=== PATIENT | male | born 1975 | race Caucasian/White ===

== ENCOUNTER 2016-09-24 11:09 | Emergency (ER) | payer OTHER ==
--- NOTE | 2016-09-24 11:30 | ERNOTE ---
Allergy Symptoms - ER Date of Service: 09/24/16 Presenting Symptoms: dizziness, other - facial redness, feeling flushed, blurry vision, Source: patient Exam Limitations: no limitations Immunizations: IMMUNIZATION HX Immunizations Up to Date Yes History of Influenza Vaccine No Hx Pneumococcal Vaccination More Information Required Allergies/Adverse Reactions: Allergies gabapentin Allergy (Verified 09/24/16 11:19) ibuprofen Allergy (Verified 09/24/16 11:19) Home Medications: HOME MEDICATIONS ALPRAZolam [Xanax] 2 mg PO TID 05/14/15 [Last Taken Unknown] Cetirizine HCl [Zyrtec] 1 tab PO DAILY PRN #30 tab 09/24/16 [Last Taken Unknown] oxyCODONE HCL [Oxycodone] 10 mg PO TID PRN 09/24/16 [Last Taken Unknown] - History of Present Illness Narrative: Pt presents with c/o "Allergic reaction" to steroid epidural injection he received yesterday. Pt claims throughout the night, he has been feeling flushed , dizzy, and very warm. Also has been feeling very anxious. Pt claims he spoke to the anesthesiologist who injected him, and he was told to come into the ER to get treated with "antihistamine". Timing: Present: constant Treatment NEUROSURGICAL PHYSICIAN ASSISTANT:: none Location skin rash/itching: Present: diffuse, "redness" Location swelling: Present: none Severity shortness of breath: Present: mild Identified cause?: Yes - possibly steroid epidural injection Similar symptoms previously: No Prior Treament: Reports: treated by physician - received steroid epidural injection yesterday. Review of Systems - Review of Systems Constitutional: Present: no symptoms reported EYE: Present: no symptoms reported ENT: Present: no symptoms reported Respiratory: Present: shortness of breath - mild Cardiology: Present: no symptoms reported Gastrointestinal/Abdominal: Present: no symptoms reported Genitourinary: Present: no symptoms reported Musculoskeletal: Present: no symptoms reported Skin: Present: See HPI Neurological: Present: no symptoms reported Endocrine: Present: no symptoms reported Hematologic/Lymphatic: Present: no symptoms reported Psych: Present: no symptoms reported All Other Systems: All systems neg except as marked - Patient's Past Medical History Patient History - Medical: Chronic Pain Patient History - Cardiac/Respiratory: No pertinent hx Patient History - Cancer: No Hx of Cancer Patient History - Surgical Procedures: Other Patient History - Other: None - Family History Father Family History - Cardiac/Respiratory: Myocardial Infarction - Social History Living Situations: home Abuse History: No History of abuse Psych History: Hx of Anxiety Smoking Status: Never smoker Have you smoked in the past 12 months: No Alcohol Use: none Drug Use: none - Immunizations Immunizations Up to Date: Yes Hx Pneumococcal Vaccination: More Information Required to Determine History of Influenza Vaccine: No Physical Exam - Physical Exam General Appearance: Present: wd/wn, alert, no apparent distress Eye Exam: Normal inspection: bilateral, PERRL: bilateral Ears, Nose, Throat: Present: normal ENT inspection Neck: Present: normal inspection, nontender Respiratory: Present: no respiratory distress, normal breath sounds, no accessory muscle use, chest nontender, lungs clear Neurological Exam: Present: alert, oriented, other - anxious Skin Exam: Present: warm/dry, other - increased redness, especially face ED Progress - Vital Signs Patient's Vital Signs:: I have reviewed the patient's vital signs. Vital Signs: Vital Signs 09/24/16 11:13 Temperature 37.5 C Pulse Rate 82 Respiratory 16 Rate Blood Pressure 200/132 O2 Sat by Pulse 95 Oximetry - Progress/Reassessment Chief Complaint: Allergic Reaction Progress:: Improved Departure Clinical Impression: Adverse drug reaction - Departure Disposition: Home self-care Condition: Good Instructions: Drug Allergy, [id number] Prescriptions: Cetirizine HCl [Zyrtec] 1 tab PO DAILY PRN #30 tab PRN Reason: Rash
[2016-09-24] MEDS ORDERED: diphenhydrAMINE HCL 50 MG/ML VIAL IM ONE (11:42)
[2016-09-24] MEDS ORDERED: diphenhydrAMINE HCL 50 MG/ML VIAL ONE (11:47)
--- OUTSIDE RECORDS SUMMARY | 2016-09-24 11:49 | XMS REPORT | Continuity of Care Document ---
:1975 Author Organization [facility] ([facility]) [place] [address] Phone [phone] Care Team Providers Name Role Phone Provider, No-Primary Care Primary Care Provider Unavailable Source Comments This disclosure is being made pursuant to the Care Everywhere program, applicable federal and state laws, and may not contain all informaitonavailable regarding this patient.[facility] ([facility]) Active Allergies and Adverse Reactions No Active Allergies Current Medications Not on file Active Problems Problem Noted Date Lumbago 09/09/2006 Closed fracture of shaft of tibia 02/04/2003 Open wound of finger(s) , complicated 10/18/2001 Social History Tobacco Use Types Packs/Day Years Used Date Never Assessed Last Filed Vital Signs Vital Sign Reading Time Taken Blood Pressure 132/88 08/19/2006 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 Pulse 64 08/19/2006 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 Temperature - - Respiratory Rate - - Height 1.85 m (6' 0.83") 08/19/2006 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 Weight 108.496 kg (239 lb 3 oz) 08/19/2006 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
[2016-09-24 11:53] VITALS: BP 156/97
== END 2016-09-24 13:03 | disposition home or self-care (01) ==
LOC: ER 11:09
DX: R06.02 Shortness of breath (principal); T38.0X5A Adverse effect of glucocorticoids and synthetic analogues, initial encounter; F41.9 Anxiety disorder, unspecified

== ENCOUNTER 2016-10-22 23:15 | Emergency (ER) | payer OTHER ==
[2016-10-23] MEDS ORDERED: NORMAL SALINE 1,000 ML IV ONE (00:35)
[2016-10-23] MEDS ORDERED: ONDANSETRON HCL/PF 2 MG/ML VIAL IV ONE (00:35)
[2016-10-23 00:40] LABS: Hematocrit 43.1 % (42.0-52.0); Hemoglobin 14.9 gm/dL (13.5-18.0); Mean Cell Volume 81.9 fl (78-100); Mean Corpuscular Hemoglobin 28.3 pg (27-31); Mean Corpuscular Hgb Conc 34.6 g/dl (32-36); Mean Platelet Volume 10.3 fl (6.0-9.5); Neutrophil # 5.3 K/mm3 (1.3-6.0); Neutrophil % 69.8 % (42-75.0); Platelet Count 281 K/mm3 (150-450); Red Blood Count 5.26 M/mm3 (4.7-6.0); Red Cell Distribution Width 12.8 % (11.5-14.0); White Blood Count 7.6 K/mm3 (4.0-10.5)
[2016-10-23] MEDS ORDERED: ONDANSETRON HCL/PF 2 MG/ML VIAL ONE (00:43)
[2016-10-23] MEDS ORDERED: KETOROLAC TROMETHAMINE 30 MG/ML VIAL ONE (00:46)
[2016-10-23] MEDS ORDERED: KETOROLAC TROMETHAMINE 30 MG/ML VIAL IV ONE (00:54)
[2016-10-23 01:01] LABS: Albumin * 4.8 gm/dl (3.4-5.0); Anion Gap 17.1 mmol/L (6.8-13.8); BUN/Creatinine Ratio 7.5 (9.0-21.6); Ca. Corrected For Albumin 8.6 mg/dL (8.4-10.2); Calcium * 9.6 mg/dL (7.9-10.9); Carbon Dioxide 23.4 mmol/L (24-32.6); Potassium 3.5 mmol/L (3.4-4.6); Total Protein 8.3 gm/dL (6.2-8.2)
[2016-10-23 01:29] LABS: Urine Bilirubin Negative (NEGATIVE); Urine Blood Negative /ul (NEGATIVE); Urine Ketone Negative (NEGATIVE); Urine Nitrite Negative (NEGATIVE); Urine Protein Negative (NEGATIVE); Urine Specific Gravity <=1.005 SP.GR. (1.005-1.030); Urine Urobilinogen Normal (NORMAL)
[2016-10-23 01:30] LABS: Cocaine Ur Negative (NEGATIVE); Urine Barbiturate Negative (NEGATIVE); Urine Opiates Negative (NEGATIVE); Urine PCP Negative (NEGATIVE); Urine THC Negative (NEGATIVE)
[2016-10-23 01:31] LABS: Urine Benzodiazepines Positive (NEGATIVE)
[2016-10-23 01:31] LABS: Urine Appearance Clear; Urine Bacteria None Seen; Urine Color Pale Yellow; Urine RBC 0-5 /hpf (0-5); Urine WBC 0-5 /hpf (0-5)
[2016-10-23 04:09] VITALS: BP 138/90
--- OUTSIDE RECORDS SUMMARY | 2016-10-23 04:34 | XMS REPORT | Continuity of Care Document ---
:1975 Author Organization [facility] ([facility]) [place] [address] Phone [phone] Care Team Providers Name Role Phone Provider, No-Primary Care Primary Care Provider Unavailable Source Comments This disclosure is being made pursuant to the Care Everywhere program, applicable federal and state laws, and may not contain all informaitonavailable regarding this patient.[facility] ([facility]) Active Allergies and Adverse Reactions No Active Allergies Current Medications Not on file Active Problems Problem Noted Date Lumbago 09/09/2006 Closed fracture of shaft of tibia 02/04/2003 Open wound of finger(s) , complicated 10/18/2001 Social History Tobacco Use Types Packs/Day Years Used Date Never Assessed Last Filed Vital Signs Vital Sign Reading Time Taken Blood Pressure 132/88 08/19/2006 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 Pulse 64 08/19/2006 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 Temperature - - Respiratory Rate - - Height 1.85 m (6' 0.83") 08/19/2006 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 Weight 108.496 kg (239 lb 3 oz) 08/19/2006 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 Body Mass Index 31.7 08/19/2006 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
--- NOTE | 2017-01-01 03:45 | ERNOTE ---
Medical Problem HPI - Narrative Date of Service: 10/23/16 - General Chief Complaint: General Assessment Source: patient Exam Limitations: no limitations - Immun/Allergies/Home Medications Immunizations: IMMUNIZATION HX Immunizations Up to Date No History of Influenza Vaccine No Hx Pneumococcal Vaccination No Allergies/Adverse Reactions: Allergies gabapentin Allergy (Intermediate, Verified 11/08/16 13:06) Swelling (Other) ibuprofen Adverse Reaction (Mild, Verified 11/08/16 13:06) Nausea Home Medications: HOME MEDICATIONS ALPRAZolam [Xanax] 2 mg PO TID 05/14/15 [Last Taken Unknown] Cyclobenzaprine HCl [Flexeril] 10 mg PO TID PRN #30 tab 11/08/16 [Last Taken Unknown] - History of Present History Narrative: 41 year old that has been feeling sick for about one week after he had his left hip joint injected in [place]. Feeling confused at times. Complaints of dysuria, and believes that he has a kidney infection. Timing: constant Severity: mild Modifying Factors - (Improves): Present: other - none Modifying Factors - (Worsens): Present: other - none Review of Systems - Review of Systems Constitutional: Present: See HPI EYE: Present: no symptoms reported ENT: Present: no symptoms reported Respiratory: Present: no symptoms reported Cardiology: Present: no symptoms reported Gastrointestinal/Abdominal: Present: no symptoms reported Genitourinary: Present: See HPI Musculoskeletal: Present: no symptoms reported Skin: Present: no symptoms reported Neurological: Present: no symptoms reported Endocrine: Present: no symptoms reported Hematologic/Lymphatic: Present: no symptoms reported Psych: Present: no symptoms reported - Patient's Past Medical History Patient History - Medical: Chronic Pain Patient History - Cardiac/Respiratory: No pertinent hx, Hypertension, Hyperlipidemia Patient History - Cancer: No Hx of Cancer Patient History - Surgical Procedures: Other Patient History - Other: None - Family History Father Family History - Cardiac/Respiratory: Myocardial Infarction - Social History Living Situations: home Abuse History: No History of abuse Psych History: Hx of Anxiety Smoking Status: Former smoker Alcohol Use: none Drug Use: none - Immunizations Immunizations Up to Date: No Hx Pneumococcal Vaccination: No History of Influenza Vaccine: No Physical Exam - Physical Exam General Appearance: Present: alert Eye Exam: Normal inspection: bilateral Ears, Nose, Throat: Present: normal ENT inspection Neck: Present: normal inspection Respiratory: Present: no respiratory distress Cardiovascular/Chest: Present: regular rate, rhythm Gastrointestinal/Abdominal: Present: nondistended, soft Back Exam: Present: normal inspection Extremity Exam: Present: normal inspection Neurological Exam: Present: alert, oriented Skin Exam: Present: normal color ED Progress - Vital Signs Patient's Vital Signs:: I have reviewed the patient's vital signs. - Progress/Reassessment Chief Complaint: General Assessment Departure - Departure Clinical Impression: Dysuria Disposition: Home self-care Condition: Fair Instructions: Dysuria Print Language: Yi Additional Instructions: If you feel worse return to the ED.
== END 2016-10-23 03:45 | disposition home or self-care (01) ==
LOC: ER 23:15
DX: R30.0 Dysuria (principal)

== ENCOUNTER 2016-11-08 12:17 | Emergency (ER) | payer OTHER ==
--- OUTSIDE RECORDS SUMMARY | 2016-11-08 12:56 | XMS REPORT | Continuity of Care Document ---
:1975 Author Organization [facility] ([facility]) [place] [address] Phone [phone] Care Team Providers Name Role Phone Provider, No-Primary Care Primary Care Provider Unavailable Source Comments This disclosure is being made pursuant to the Care Everywhere program, applicable federal and state laws, and may not contain all informaitonavailable regarding this patient.[facility] ([facility]) Active Allergies and Adverse Reactions No Active Allergies Current Medications Not on file Active Problems Problem Noted Date Lumbago 09/09/2006 Closed fracture of shaft of tibia 02/04/2003 Open wound of finger(s) , complicated 10/18/2001 Social History Tobacco Use Types Packs/Day Years Used Date Never Assessed Last Filed Vital Signs Vital Sign Reading Time Taken Blood Pressure 132/88 08/19/2006 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
--- NOTE | 2016-11-08 13:04 | ERNOTE ---
Syncope ER HPI Stated Complaint: PASSED OUT Time Seen by Provider: 11/08/16 12:50 Source: patient Exam Limitations: no limitations Immunizations: IMMUNIZATION HX Immunizations Up to Date Yes History of Influenza Vaccine Yes Hx Pneumococcal Vaccination Yes Allergies/Adverse Reactions: Allergies gabapentin Allergy (Intermediate, Verified 11/08/16 13:06) Swelling (Other) ibuprofen Adverse Reaction (Mild, Verified 11/08/16 13:06) Nausea Home Medications: HOME MEDICATIONS ALPRAZolam [Xanax] 2 mg PO TID 05/14/15 [Last Taken Unknown] Cyclobenzaprine HCl [Flexeril] 10 mg PO TID PRN #30 tab 11/08/16 [Last Taken Unknown] - History of Present Illness Narrative: Patient presents with another syncopal episode today although he had one last night as well. He states that he's had multiple over the last 5-10 years. He further states that he can tell when her coming on because he gets a whooshing sound, however his says he is always a little confused when he comes out of the syncope. Prior Episodes: Present: recent history, other - chronic for many years Symptoms prior to episode: Present: other - whooshing sound Character of event: Present: brief (seconds) Location of Injury: Present: none Current Symptoms: Present: back to normal Review of Systems - Review of Systems Constitutional: Present: no symptoms reported EYE: Present: no symptoms reported ENT: Present: no symptoms reported Respiratory: Present: no symptoms reported Cardiology: Present: no symptoms reported Gastrointestinal/Abdominal: Present: no symptoms reported Genitourinary: Present: no symptoms reported Musculoskeletal: Present: no symptoms reported Skin: Present: no symptoms reported Neurological: Present: no symptoms reported Endocrine: Present: no symptoms reported Hematologic/Lymphatic: Present: no symptoms reported Psych: Present: no symptoms reported - Patient's Past Medical History Patient History - Medical: Chronic Pain Patient History - Cardiac/Respiratory: No pertinent hx, Hypertension, Hyperlipidemia Patient History - Cancer: No Hx of Cancer Patient History - Surgical Procedures: Other Patient History - Other: None - Family History Father Family History - Cardiac/Respiratory: Myocardial Infarction - Social History Living Situations: home Abuse History: No History of abuse Psych History: Hx of Anxiety Smoking Status: Never smoker Alcohol Use: none Drug Use: none - Immunizations Immunizations Up to Date: Yes Hx Pneumococcal Vaccination: Yes History of Influenza Vaccine: Yes Physical Exam - Physical Exam General Appearance: Present: wd/wn, alert, no apparent distress Eye Exam: Normal inspection: bilateral, PERRL: bilateral Ears, Nose, Throat: Present: normal ENT inspection, H, normal pharynx Neck: Present: normal inspection, nontender Respiratory: Present: no respiratory distress, normal breath sounds, no accessory muscle use, chest nontender, lungs clear Cardiovascular/Chest: Present: regular rate, rhythm, no murmur, normal peripheral pulses Gastrointestinal/Abdominal: Present: normal bowel sounds, nontender, nondistended, soft, no organomegaly Rectal Exam: Present: deferred Back Exam: Present: normal inspection, normal range of motion Extremity Exam: Present: normal inspection, non-tender, no edema, normal range of motion Neurological Exam: Present: alert, oriented, normal mood/affect Skin Exam: Present: normal color, warm/dry Lymphatic Exam: Present: no adenopathy ED Progress - Results and Orders Patient's Lab Results:: I have reviewed the patient's lab results. - Vital Signs Patient's Vital Signs:: I have reviewed the patient's vital signs. Vital Signs: Vital Signs 11/08/16 12:22 Temperature 36.5 C Pulse Rate 93 Respiratory 16 Rate Blood Pressure 156/109 O2 Sat by Pulse 97 Oximetry - EKG EKG: NSR - CT/Ultrasound CT/Ultrasound Narrative: Head CT reviewed - Progress/Reassessment Chief Complaint: Syncopal Episode Plan - Plan Plan: Unclear etiology for the syncopal episodes however they have somewhat the appearance of seizures. Patient will get an outpatient EEG done this coming on 11/11/2016 at 1 PM in the sleep lab. Patient apparently has an office call visit scheduled with Dr. Fabrice Berry and he will keep that appointment after the EEG. Departure Clinical Impression: Syncope Qualifiers: Syncope type: unspecified Qualified Code(s): R55 - Syncope and collapse - Departure Disposition: Home self-care Condition: Good Instructions: Syncope, [id number], Epilepsy, [id number] Prescriptions: Cyclobenzaprine HCl [Flexeril] 10 mg PO TID PRN #30 tab PRN Reason: MUSCLE SPASMS
[2016-11-08] MEDS ORDERED: KETOROLAC TROMETHAMINE 30 MG/ML VIAL IM ONE (13:11)
[2016-11-08] MEDS ORDERED: ORPHENADRINE CITRATE 30 MG/ML VIAL IM ONE (13:11)
[2016-11-08] MEDS ORDERED: KETOROLAC TROMETHAMINE 60 MG/2 ML VIAL IM ONE (13:12)
[2016-11-08] MEDS ORDERED: ORPHENADRINE CITRATE 30 MG/ML VIAL ONE (13:12)
[2016-11-08 13:41] LABS: Hematocrit 46.2 % (42.0-52.0); Hemoglobin 15.5 gm/dL (13.5-18.0); Mean Cell Volume 82.9 fl (78-100); Mean Corpuscular Hemoglobin 27.8 pg (27-31); Mean Corpuscular Hgb Conc 33.5 g/dl (32-36); Neutrophil # 4.9 K/mm3 (1.3-6.0); Platelet Count 308 K/mm3 (150-450); Red Blood Count 5.57 M/mm3 (4.7-6.0); Red Cell Distribution Width 12.8 % (11.5-14.0); White Blood Count 7.1 K/mm3 (4.0-10.5)
[2016-11-08 14:04] LABS: Albumin * 4.7 gm/dl (3.4-5.0); Anion Gap 17.5 mmol/L (6.8-13.8); BUN/Creatinine Ratio 8.6 (9.0-21.6); Bilirubin, Total 1.3 mg/dL (0.0-1.1); Ca. Corrected For Albumin 8.7 mg/dL (8.4-10.2); Calcium * 9.6 mg/dL (7.9-10.9); Carbon Dioxide 24.7 mmol/L (24-32.6); Potassium 4.2 mmol/L (3.4-4.6); Total Protein 8.3 gm/dL (6.2-8.2)
[2016-11-08 14:44] VITALS: BP 128/84
== END 2016-11-08 14:20 | disposition home or self-care (01) ==
LOC: ER 12:17
DX: R55 Syncope and collapse (principal)

== ENCOUNTER 2016-12-01 17:39 | Emergency (ER) | payer OTHER ==
[2016-12-01 17:39] VITALS: BP 156/109
--- OUTSIDE RECORDS SUMMARY | 2016-12-01 17:58 | XMS REPORT | Continuity of Care Document ---
:1975 Author Organization [facility] ([facility]) [place] [address] Phone [phone] Care Team Providers Name Role Phone Provider, No-Primary Care Primary Care Provider Unavailable Source Comments This disclosure is being made pursuant to the Care Everywhere program, applicable federal and state laws, and may not contain all informaitonavailable regarding this patient.[facility] ([facility]) Active Allergies and Adverse Reactions No Active Allergies Current Medications Not on file Active Problems Problem Noted Date Lumbago 09/09/2006 Closed fracture of shaft of tibia 02/04/2003 Open wound of finger(s) , complicated 10/18/2001 Social History Tobacco Use Types Packs/Day Years Used Date Never Assessed Last Filed Vital Signs Vital Sign Reading Time Taken Blood Pressure 132/88 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
--- NOTE | 2016-12-01 18:50 | ERNOTE ---
Cardiopulmonary Resuscitation Presenting Symptoms: found unresponsive Time Seen by Provider: 12/01/16 17:46 Source: EMS Immunizations: IMMUNIZATION HX Immunizations Up to Date Yes History of Influenza Vaccine Yes Hx Pneumococcal Vaccination Yes Allergies/Adverse Reactions: Allergies gabapentin Allergy (Intermediate, Verified 11/08/16 13:06) Swelling (Other) ibuprofen Adverse Reaction (Mild, Verified 11/08/16 13:06) Nausea Home Medications: HOME MEDICATIONS ALPRAZolam [Xanax] 2 mg PO TID 05/14/15 [Last Taken Unknown] Cyclobenzaprine HCl [Flexeril] 10 mg PO TID PRN #30 tab 11/08/16 [Last Taken Unknown] Narrative: Patient was apparently last seen normal at approximately 12:30 today. Significant other came home today and found him unresponsive at approximately 5: 30. EMS service showed up and he was found to be pulseless and apneic and had no discernible rhythm on monitor. A CODE BLUE and ACLS was undertaken by the EMS service and he was brought in to the emergency department, ultrasound examination of the heart revealed no heart activity in the chest patient remained pulseless and apneic the entire time he was here. Context: Present: other - girlfriend is unsure what happened, she came home and found him unresponsive and cold to the touch Initial Findings by EMS - Mentation: unresponsive Initial Findings by EMS - Respirations: none Initial Findings by EMS - Pulse: none Initial Findings by EMS - Rhythm: asystole Treatment INDUSTRIAL SPECIALIST:: Present: CPR, epinephrine, IV/IO Code Timing: Present: still present Review of Systems - Narrative Narrative: Unable to obtain due to the asystole state and patient being apneic and unresponsive. - Patient's Past Medical History Patient History - Medical: Chronic Pain Patient History - Cardiac/Respiratory: No pertinent hx, Hypertension, Hyperlipidemia Patient History - Cancer: No Hx of Cancer Patient History - Surgical Procedures: Other Patient History - Other: None - Family History Father Family History - Cardiac/Respiratory: Myocardial Infarction - Social History Living Situations: home Abuse History: No History of abuse Psych History: Hx of Anxiety Alcohol Use: none Drug Use: none - Immunizations Immunizations Up to Date: Yes Hx Pneumococcal Vaccination: Yes History of Influenza Vaccine: Yes Physical Exam - Physical Exam General Appearance: Present: other - asystole Respiratory: Present: other - no spontaneous respirations Cardiovascular/Chest: Present: other - asystole ED Progress - Vital Signs Patient's Vital Signs:: I have reviewed the patient's vital signs. Vital Signs: Vital Signs 12/01/16 12/01/16 12/01/16 17:39 17:40 17:46 Pulse Rate 0 L 0 L Respiratory 12 12 Rate Blood Pressure 156/109 - Progress/Reassessment Chief Complaint: Code Blue Progress:: Unchanged Plan - Plan Plan: After examination of the heart on ultrasound, and the patient having neither pulse 90 spontaneous respirations, as well as the patient having fixed and dilated pupils and cold to touch the CODE BLUE was called at 5:43 PM. ME notified and he has arrived. The patients family removed the Fentanyl patch that was on the patients right shoulder and they have the patch in their possession. Departure Clinical Impression: Cardiac arrest - Departure Condition:
== END 2016-12-01 19:53 | disposition expired ==
LOC: ER 17:39
DX: T40.4X1A Poisoning by other synthetic narcotics, accidental (unintentional), initial encounter (principal); T42.4X1A Poisoning by benzodiazepines, accidental (unintentional), initial encounter; T40.2X1A Poisoning by other opioids, accidental (unintentional), initial encounter; Y92.009 Unspecified place in unspecified non-institutional (private) residence as the place of occurrence of the external cause; I46.9 Cardiac arrest, cause unspecified; S91.331A Puncture wound without foreign body, right foot, initial encounter; R23.3 Spontaneous ecchymoses; J81.1 Chronic pulmonary edema; I51.7 Cardiomegaly; R33.9 Retention of urine, unspecified; E66.9 Obesity, unspecified; Z68.33 Body mass index [BMI] 33.0-33.9, adult; S22.20XA Unspecified fracture of sternum, initial encounter for closed fracture; S22.43XA Multiple fractures of ribs, bilateral, initial encounter for closed fracture; I12.9 Hypertensive chronic kidney disease with stage 1 through stage 4 chronic kidney disease, or unspecified chronic kidney disease; N18.9 Chronic kidney disease, unspecified